=== PATIENT | male | born 1970 | race Caucasian/White ===

== ENCOUNTER 2021-10-25 18:20 | Inpatient (IN) | payer MEDICARE, SELFPAY ==
--- NOTE | ~2021-10-25 | CT_ITS ---
EXAMINATION: CT abdomen pelvis wo con DATE: 10/25/2021 19:54 INDICATION: DIFFUSE ABDOMINAL PAIN, HEMATURIA TECHNIQUE: Computed tomography (CT) of the abdomen and pelvis was performed without intravenous contr ast. Automated exposure control and iterative reconstruction technique were employed. The dose-length product was 1551.50 mGy-cm. COMPARISON: None. FINDINGS: Lower thorax: Small hiatal hernia Liver: Normal. Biliary/Gallbladder: Unremarkable No bile duct dilation. Pancreas: No mass or duct dilation. Spleen: Normal. Adrenals:No mass. Kidneys: Moderate bilateral hydronephrosis. Nonobstructive right midpole calculus. Bilateral renal ec topy. GI tract: Diffusely mildly dilated mostly air-filled large bowel. Nonvisualized. Short segment eccent mariola wall thickening in the sigmoid. The rectum is dilated up to 8.3 cm by formed stool, with mild wal l thickening but no surrounding inflammatory change. Mesentery/Peritoneum: No ascites, mass, or free air. Shunt tubing terminates in the left upper quadra nt. Retroperitoneum: No mass. Pelvis: Markedly dilated bladder. Curvilinear hyperdensity in the dependent urinary bladder portions of which is somewhat circumferential appearance. The Saez catheter balloon is located in the membran ous urethra. Soft Tissues: Soft tissues and body wall unremarkable. Bones: No acute osseous finding. IMPRESSION: Saez catheter balloon located in the membranous urethra, recommend removal and replacement. Marked b ladder dilation and moderate bilateral hydronephrosis. Hyperdense urinary bladder debris may represen t hemorrhage and possibly a urinary bladder stone. Fecal impaction with mild large bowel obstruction. Eccentric sigmoid wall thickening, recommend outpatient referral for colonoscopy if not recently per formed. Results reported telephonically to Dr. Juarez by Dr. Rodriguez at 8:17 PM on 10/25/2021. Reviewed, dictated and finalized at location K. IMPRESSION: Saez catheter balloon located in the membranous urethra, recommend removal and replacement. Marked bladder dilation and moderate bilateral hydronephrosis. Hy perdense urinary bladder debris may represent hemorrhage and possibly a urinary bladder stone. Fecal impaction with mild large bowel obstruction. Eccentric si gmoid wall thickening, recommend outpatient referral for colonoscopy if not rec ently performed. Results reported telephonically to Dr. Juarez by Dr. Rodriguez at 8:17 PM on 10/25.
--- NOTE | ~2021-10-25 | XR_ITS ---
EXAMINATION: XR chest 1V portable Exam Date/Time: 10/25/2021 19:20 CDT HISTORY: FEVER Comparison: None available. RESULT: Lines, tubes, and devices: Incompletely visualized cervical fusion hardware. Lungs and pleura: Clear. Cardiomediastinal silhouette: Unremarkable. Other: No acute osseous or upper abdominal finding. IMPRESSION: No acute cardiopulmonary process. Reviewed, dictated and finalized at location K.
--- NOTE | ~2021-10-25 | US_ITS ---
EXAMINATION: US renal BI DATE: 10/26/2021 14:21 INDICATION: Bilateral hydronephrosis. TECHNIQUE: Multiple ultrasound grayscale images of the kidneys were obtained. COMPARISON: CT abdomen and pelvis 10/25/2021 FINDINGS: The right kidney measures 12.8 x 5.8 x 5.0 cm. The left kidney measures 12.4 x 6.6 x 4.9 cm. The kidn eys demonstrate normal parenchymal echogenicity. There is no hydronephrosis. The bladder is decompres sed by a Saez catheter. IMPRESSION: 1. Normal kidneys. No hydronephrosis. Reviewed, dictated and finalized at location A.
[2021-10-25 18:18] VITALS: BP 142/75; PULSE 129; RESP 26; TEMP 37.4; O2SAT 97
--- NOTE | 2021-10-25 18:52 | ED.MALEGU ---
HPI - Male Genitourinary General Chief complaint: Urogenital-Male Stated complaint: Blood in catheter Time Seen by Provider: 10/25/21 18:32 History of Present Illness HPI Narrative: Pt is a 51 y/o male PMHx of spinal stenosis with prior cervical fusion, S/P fall over a month ago with BUE weakness following, subsequently placed in a SNF following, long hx of neurogenic bladder prior to the fall, self catheterized for years, now presenting from a local rehab facility with indwelling Saez catheter; sent today to the ED for hematuria. [facility] staff reported his catheter was no longer draining and the catheter was subsequently replaced. A scant amount of dark urine drained and gross blood followed. He has not had fevers until arrival to the ED today but reports diffuse abdominal aching and some nausea. He denies associated cough, nasal congestion, URI symptoms, abdominal pain, VDC or COV concerns. Related Data Allergies Allergy/AdvReac Type Severity Reaction Status Date / Time No Known Allergies Allergy Verified 09/02/21 17:54 Review of Systems Review of Systems: refer to HPI Constitutional: Comments: refer to HPI Genitourinary: Comments: refer to HPI FORMERLY [facility], [facility] Past Medical History Medical History (Updated 10/26/21 @ 00:11 by SHAQ Bernard) Acute on chronic urinary retention Cervical spinal stenosis Congenital hydrocephalus Constipation Diabetes mellitus Sinus tachycardia Surgical History Surgical History (Updated 09/03/21 @ 10:56 by Hardy Huber MD) S/P spinal fusion Family History Family History Mother Heart disease Hypertension Diabetes mellitus Father Heart disease Social History Social History Smoking status: Never smoker Exam Const: General: cooperative, no acute distress, alert and awake Other: Pt arrives in a C collar prior to arrival. He has voluntary movement of his upper and lower extremities bilaterally but generally weak/symmetrical 3/5 throughout. HENMT: Head: normal to inspection Ears: hearing grossly normal bilaterally Face and sinus: normal facial exam, sinuses nontender and face symmetric Eyes: General: appearance normal, both eyes and all related structures Visual Purcell: normal visual purcell by confrontation Eyelids: eyelids normal Conjunctivae: conjunctivae normal Sclera: sclerae normal Neck: Neck: normal visual inspection Other: C collar in place Chest: Chest palpation & inspection: normal inspection of the chest Resp: Effort & Inspection: normal respiratory effort Auscultation: clear to auscultation bilaterally Percussion: percussion normal Cardio: Rate: tachycardic Rhythm: regular rhythm Heart sounds: S1 normal heart sound present and S2 normal heart sound present Peripheral pulses: Peripheral pulses 2+ throughout GI: Percussion: Yes normal to percussion Auscultation: normal bowel sounds Other: central obesity noted No focal TTP, no rebound tenderness : Male General Exam: Yes other (Pt has erosive tissue at the base of the urethral meatus) Scrotum: scrotum normal Other: There is some erythema to the meatus with bloody drainage noted. No hemorrhage noted. There is no TTP. Pt is not circumcised Urinary Catheter: Urinary Catheter: urine with clots (scant urine out) Back/Spine/Pelvis: Other: bladder scan is complete. pt has large volume of urine retained in the bladder. catheter replacement does not irrigate or provide any further drainage from the bladder. Skin: Rashes: no rashes Other: skin is hot to touch, febrile upon arrival Neuro: Cranial nerves: Yes CN's II-XII intact bilaterally Other: decreased sensation but present, reported to BLE-chronic per patient. Pt has stage 2 pressure ulcerations of the sacrum/buttock bilaterally. NO tunneling or drainage noted Psych: Appearance: grossly normal Mental Status: mental status grossly normal Course Course Emergency Cou
[2021-10-25 18:59] LABS: Add Urine Microscopic? YES; Appearance Urine Turbid (Clear); Bilirubin Urine 1+ (Negative); Blood Urine 2+ (Negative); Color Urine Red (Yellow); Glucose Urine UA Trace mg/dL (Negative); Ketones Urine Trace mg/dL (Negative); Leukocyte Esterase Ur Negative LEU/UL (Negative); Nitrate Urine Negative (Negative); Protein Urine 3+ mg/dL (Negative); Specific Grav Ur 1.025 (1.001-1.035); Urobilinogen Urine 0.2 mg/dL (<2.0)
[2021-10-25 19:02] LABS: Basophils Percent Auto 1.4 % (0.2-1.2); Hematocrit 42.3 % (42.0-52.0); Hemoglobin 12.5 g/dL (14.0-18.0); Immature Granulocyte Absolute 0.01 K/mm3 (0.00-0.031); Immature Granulocyte Percent A 0.3 % (0-0.5); Lymphocytes Absolute Auto 0.34 K/mm3 (0.9-3.2); Lymphocytes Percent Auto 11.7 % (18.3-44.2); Mean Corpuscular HGB Conc 29.6 g/dl (32-36); Mean Corpuscular Hemoglobin 25.6 pg (26-34); Mean Corpuscular Volume 86.7 fl (80-100); Mean Platelet Volume 9.9 fl (7.4-10.4); Monocytes Percent Auto 0.7 % (2.6-8.5); Neutrophils Absolute Auto 2.5 K/mm3 (1.3-6.7); Neutrophils Percent Auto 84.9 % (45.5-73.1); Platelet Count Result 174 k/mm3 (150-375); Red Blood Count 4.88 M/mm3 (4.6-6.20); Red Cell Distribution Width 14.6 % (11.5-14.5); White Blood Count 2.9 K/mm3 (4.5-10.0)
[2021-10-25 19:11] LABS: RBC Urine >75 /hpf (0-2)
[2021-10-25 19:12] LABS: Bacteria Urine None seen /hpf; WBC Urine 0-3 /hpf (0-3)
--- NOTE | 2021-10-25 19:24 | PC.NURSE ---
Assumed care with chloe BATES. Pt resting at approx 30 degree angle upright in stretcher with c-collar applied. Pt urinary bag draining with blood-tinged urine at this time.
[2021-10-25 19:28] LABS: Hypochromasia 1+ (NORMAL); Ovalocytes 1+ (NORMAL); Platelet Estimate Adequate (Adequate)
[2021-10-25] MEDS: ACETAMINOPHEN 325 MG TABLET 650 MG PO (19:30)
[2021-10-25 19:49] LABS: SARS-CoV-2 RNA PCR Negative
[2021-10-25 20:02] LABS: Alanine Aminotransferase 31 U/L (6-50); Albumin Level 4.4 g/dL (3.5-5.1); Alkaline Phosphatase 161 U/L (38-126); Anion Gap 17 mmol/L (8-16); Aspartate Amino Transferase 25 U/L (17-59); Bilirubin,Total 1.2 mg/dL (0.2-1.3); Blood Urea Nitrogen 25 mg/dL (9-20); Calcium 9.5 mg/dL (8.4-10.2); Carbon Dioxide 24 mmol/L (22-30); Chloride 99 mmol/L (98-107); Estimated CRCL calculation 114 ml/min; Estimated Glomerular Filt Rate > 60; Glucose 125 mg/dL (65-110); Lipase 108 U/L (23-300); Sodium 140 mmol/L (137-145)
[2021-10-25 20:03] LABS: Lactic Acid Reflex 2.7 mmol/L (0.7-2.0)
[2021-10-25 20:09] VITALS: BP 136/83; PULSE 140; RESP 27; TEMP 39.6; O2SAT 96
[2021-10-25 20:16] VITALS: TEMP 39.4
[2021-10-25] MEDS: KETOROLAC 30 MG/ML VIAL (*BKC) IV PUSH (20:16)
[2021-10-25] MEDS: SODIUM CHLORIDE 0.9% IV 1,000 ML 30 ML IV CONT (20:17)
[2021-10-25 21:26] VITALS: BP 126/76; PULSE 138; RESP 26; TEMP 37.7; O2SAT 96
[2021-10-25 22:46] LABS: Reflex Lactic Acid Yes or No Add Lactic
[2021-10-25 23:35] LABS: Lactic Acid Reflex 1.5 mmol/L (0.7-2.0)
[2021-10-25 23:51] LABS: CRP 21.6 mg/dL (<1.0)
[2021-10-25 23:59] VITALS: BP 102/62; PULSE 116; RESP 36; TEMP 37.1; O2SAT 95
[2021-10-26] VITALS (18 sets, daily range): BP systolic 91–128; BP diastolic 54–74; PULSE 90–114; RESP 16–28; TEMP 36.1–37.2; O2SAT 95–100; BMI 35.0
[2021-10-26] MEDS: SODIUM CHLORIDE 0.9% IV 500 ML 999 ML IV CONT (00:03)
[2021-10-26] MEDS: cefTRIAXone 2 GM in SODIUM CHLORIDE 0.9% IV 100 ML 200 ML IVPB ×2 (00:32→23:42)
--- NOTE | 2021-10-26 02:03 | ADMGEN ---
This patient, Mark Kenny, was admitted to Medical Room 250-01. Patient/family oriented to hospital policies and general routines including ID bracelet, bed and alarms, visiting hours, pain management, procedures, bathroom and other care routines, personal items, smoking policy, room service/diet, and visiting hours. Information on how to activate the Rapid Response Team has been discussed. Patient/Family are encouraged to report perceived risks to care and to ask questions if they do not understand what they are told or what they should do.
--- NOTE | 2021-10-26 02:59 | PC.NURSE ---
Spoke with ED Vilma who stated that all the bolus had been given as ordered.
--- NOTE | 2021-10-26 05:18 | PM.IMHP ---
H&P: HPI History of Present Illness Date/Time: 10/26/21 04:40 Chief Complaint: Blood in urine Narrative: Unfortunate 51-year-old male with past medical history of neurologic dysfunction due to combination of cauda equina from injury many years ago combined with cervical spine injury after tripping over his granddaughter in late August. The patient underwent cervical decompression and stabilization as discussed under past medical history. Patient was in acute inpatient rehab from 09/03/2021-09/23/2021. He was not meeting his goals for therapy and was discharged to the halfway facility. While in acute rehab the patient had a positive urine culture on 09/11/2021. It initially he was not treated for UTI but 4 days after the positive urine culture he began having symptoms. He was treated for 7 days with cefdinir. The patient has had a Saez catheter since he was transitioned to halfway facility. The patient could not remember exactly why he was brought into the ER. He did not think he was having any confusion but at this point he admits that he probably does not remember much from around the time he came to the ER. [facility] reported that the patient was having blood in his urine. He had also had decreased urine output from his catheter. They had tried to changes catheter at the halfway minute evidently ended up within the prostatic urethra. ER staff adjusted the catheter and still the catheter was not draining. Subsequently a 3 way catheter was placed for anticipated CBI but with placement of the larger catheter the patient's bladder began draining urine with clots. The patient reports the abdominal pain initially on arrival to the ER. He denies any abdominal pain currently. On arrival to the ER he was overtly febrile with a temperature of 103.2?. He denies any cough, congestion, shortness of breath. He reports that his mouth feels dry. He denies any headache or vision changes. He has chronic cauda equina syndrome but is usually able to get up and walk around. He has been participating with physical therapy and ambulating with a walker at the halfway. He denies any loss of sensation in his arms and currently has 5/5 senior investigator strength. He has no reproducible pain to palpation of his abdomen currently. He was manually disimpacted in the ER and received an enema. The patient initially told me that he was not on a bowel regimen at the halfway but according to the med rec entered by nursing staff the patient is on multiple medications. The patient reports he does not usually have trouble holding his stool as long as his stools are not too soft. Review of Systems Review of Systems: 12 systems were reviewed with pertinent positives and negatives per HPI. Except as documented in the HPI, all other systems were reviewed and are negative. [facility] Past Medical History Medical History (Updated 10/26/21 @ 06:48 by Renetta Leggett DO) Cauda equina compression (~1997) Cervical spinal stenosis Chronic indwelling Saez catheter Congenital hydrocephalus Constipation COVID (~10/2021) Diabetes mellitus DVT (deep venous thrombosis) (~1983) Eczema Essential hypertension Neurogenic bladder Sinus tachycardia Surgical History Surgical History (Updated 10/26/21 @ 06:36 by Renetta Leggett DO) History of appendectomy History of fusion of cervical spine Anterior C3-C4 in 1993, 08/24/2021 spinal cord injury MRI demonstrating moderate to severe degenerative changes at C4-C5 with severe spinal canal stenosis and mass effect on spinal cord he underwent a C2 through T1 2 posterior spinal fusion with a C2 through C7 decompression by Dr. Nieves 08/26/2021 Status post lumbar spine surgery for decompression of spinal cord (~1998) RAC SPECIALIST (ventriculoperitoneal) shunt status With last revision in 1999 Family History Family History (Updated 10/26/21 @ 06:49 by Renetta Leggett DO) Mother , Age 71 Heart disease Hy
[2021-10-26] MEDS: SODIUM CHLORIDE 0.9% IV 1,000 ML 125 ML IV CONT ×2 (06:54→16:22)
[2021-10-26 07:03] LABS: Hematocrit 31.6 % (42.0-52.0); Hemoglobin 9.9 g/dL (14.0-18.0); Mean Corpuscular HGB Conc 31.3 g/dl (32-36); Mean Corpuscular Hemoglobin 25.5 pg (26-34); Mean Corpuscular Volume 81.4 fl (80-100); Mean Platelet Volume 9.6 fl (7.4-10.4); Platelet Count Result 148 k/mm3 (150-375); Red Blood Count 3.88 M/mm3 (4.6-6.20); Red Cell Distribution Width 14.8 % (11.5-14.5); White Blood Count 11.3 K/mm3 (4.5-10.0)
[2021-10-26 07:40] LABS: Anion Gap 12 mmol/L (8-16); Blood Urea Nitrogen 25 mg/dL (9-20); Calcium 7.5 mg/dL (8.4-10.2); Carbon Dioxide 21 mmol/L (22-30); Chloride 104 mmol/L (98-107); Estimated CRCL calculation 113 ml/min; Estimated Glomerular Filt Rate > 60; Glucose 151 mg/dL (65-110); Potassium 3.7 mmol/L (3.4-5.0); Sodium 137 mmol/L (137-145)
[2021-10-26] MEDS: MELOXICAM 7.5 MG TABLET PO ×2 (09:00→16:24)
[2021-10-26] MEDS: DOCUSATE SODIUM 100 MG CAPSULE 200 MG PO ×2 (09:01→16:23)
[2021-10-26] MEDS: GABAPENTIN 300 MG CAPSULE 600 MG PO ×3 (09:01→16:24)
[2021-10-26] MEDS: METOPROLOL TARTRATE 12.5 MG TABLET PO ×2 (09:02→20:41)
[2021-10-26] MEDS: polyethylene glycoL 3350 17 GM POWD.PACK PO (09:03)
--- NOTE | 2021-10-26 12:08 | PM.IMPN ---
Progress Note: A&P Assessment and Plan (1) Sepsis without septic shock: Code(s): A41.9 - Sepsis, unspecified organism Status: Acute Assessment and Plan: Now improved. (2) UTI (urinary tract infection): Qualifiers: Urinary tract infection type: catheter-associated UTI Indwelling urinary catheter type: indwelling urethral catheter Encounter type: initial encounter Qualified Code(s): T83.511A - Infection and inflammatory reaction due to indwelling urethral catheter, initial encounter; N39.0 - Urinary tract infection, site not specified Code(s): N39.0 - Urinary tract infection, site not specified Status: Acute Assessment and Plan: Continue IV antibiotics. (3) Fecal impaction in rectum: Code(s): K56.41 - Fecal impaction Status: Acute Assessment and Plan: Status post disimpaction in ER. (4) Chronic indwelling Saez catheter: Code(s): Z97.8 - Presence of other specified devices Status: Acute Subjective Date/time seen: 10/26/21 12:08 Denies any complaints Exam Narrative: Weight 117.3 kg BMI 35.1 Const: Other: Obese, no acute distress, laying flat in bed HENMT: Other: Head is normocephalic atraumatic, mucous membranes are dry, limited evaluation oropharynx as patient cannot open his mouth much due to presence of cervical collar, fair dentition Eyes: Other: pupils are equal and reactive, mild conjunctival erythema left eye, eye is watering Neck: Other: Cervical collar in place Resp: Other: Clear to auscultation bilaterally, no increased work of breathing Cardio: Other: Regular rate, regular rhythm, 2+ bilateral radial pedal pulses GI: Other: Distended, nontender, hypoactive bowel sounds, soft : Other: Saez catheter in place with distortion of the urethral meatus due to history of repeated catheterization, 150-200 mL of dark turbid carmen urine present Back/Spine/Pelvis: Other: Cervical collar in place Skin: Other: Extensive tattoos extending up bilateral arms including posterior of the fingers up on to the chest, otherwise generalized pallor Neuro: Other: Alert and oriented, speech is clear, no facial asymmetry, decreased reflexes patellar bilaterally, intact sensation of upper extremities, upper extremity movement is grossly normal, 3/5 strength plantar flexion bilateral lower extremities Extrem: Other: 1+ pitting edema of lower extremities, Psych: Other: Flat affect, cooperative Objective Data Vital Signs Vital Signs: Vital Signs - 24 hr 10/25/21 18:18 10/25/21 20:09 10/25/21 20:16 Temperature 99.3 F 103.2 F H 103 F H Pulse Rate 129 H 140 H Respiratory Rate 26 H 27 H Blood Pressure 142/75 H 136/83 Pulse Oximetry 97 96 Oxygen Delivery Room Air 10/25/21 21:26 10/25/21 21:26 10/25/21 23:59 Temperature 99.9 F H 99.9 F H 98.8 F Pulse Rate 138 H 116 H Respiratory Rate 26 H 36 H Blood Pressure 126/76 102/62 Pulse Oximetry 96 95 Oxygen Delivery 10/26/21 00:36 10/26/21 01:25 10/26/21 01:36 Temperature Pulse Rate 114 H 103 H 104 H Respiratory Rate 24 H 28 H 16 Blood Pressure 91/58 L 104/61 104/61 Pulse Oximetry 96 96 95 Oxygen Delivery 10/26/21 02:03 10/26/21 02:02 10/26/21 03:21 Temperature 98.8 F 98.5 F Pulse Rate 98 97 Respiratory Rate 20 20 Blood Pressure 106/54 L 125/69 Pulse Oximetry 98 99 Oxygen Delivery Room Air 10/26/21 02:12 10/26/21 04:00 10/26/21 09:02 Temperature Pulse Rate 98 95 94 Respiratory Rate Blood Pressure Pulse Oximetry Oxygen Delivery 10/26/21 10:00 10/26/21 08:00 10/26/21 08:00 Temperature 97.5 F L Pulse Rate 97 94 Respiratory Rate 16 Blood Pressure 127/74 Pulse Oximetry 100 Oxygen Delivery Room Air Intake/Output Intake/Output: Intake & Output 10/23/21 10/24/21 10/25/21 10/26/21 23:59 23:59 23:59 23:59 Intake Total 19990 Output Total 0 550 Balance 1999 2049 M
--- NOTE | 2021-10-26 13:11 | WPDURCON ---
Assessment and Plan Assessment and plan (1) UTI (urinary tract infection): Qualifiers: Urinary tract infection type: catheter-associated UTI Indwelling urinary catheter type: indwelling urethral catheter Encounter type: initial encounter Qualified Code(s): T83.511A - Infection and inflammatory reaction due to indwelling urethral catheter, initial encounter; N39.0 - Urinary tract infection, site not specified Code(s): N39.0 - Urinary tract infection, site not specified Status: Acute Assessment and Plan: Continue Ceftriaxone, tailor antibiotics to culture results. (2) Chronic indwelling Edwards catheter: Code(s): Z97.8 - Presence of other specified devices Status: Acute Assessment and Plan: Continue monthly catheter changes until he is able to self catheterize again. We discussed f/u in the office for a cysto to evaluate his bladder d/t a long history of self catheterization and a having a more elevated risk of bladder cancer. (3) Hematuria: Code(s): R31.9 - Hematuria, unspecified Status: Acute Assessment and Plan: Secondary to urethral trauma and UTI. Restart CBI, wean CBI to off when urine is clear, restart if blood begins again. Ok to switch catheter to a normal 16fr catheter when hematuria ceases off CBI. (4) Hydronephrosis: Code(s): N13.30 - Unspecified hydronephrosis Status: Acute Assessment and Plan: Obtain a ARVIND today to ensure bladder distention and bilateral hydro has resolved secondary to catheter replacement and maximal bladder drainage is accomplished without obstruction from clots or a dislodged catheter. Urology Consult Note HPI Date Seen: 10/26/21 Time Seen: 13:00 Requesting Physician: Renetta Leggett DO Primary Care Provider: Abel GrossmanMD Consult Narrative Reason for consult: Gross Hematuria/UTI Narrative: Mark Kenny is a 51 year old male who presented to the ER yesterday for a clogged catheter, fever and abdominal pain. He has a PMHx of spinal stenosis with prior cervical fusion, S/P fall over a month ago with BUE weakness following, subsequently placed in a SNF following, long hx of neurogenic bladder prior to the fall, self catheterized for years, now presenting from a local rehab facility with indwelling Edwards catheter. He states he cannot walk to the bathroom without assistance yet, therefore he has stopped self catheterizing temporarily until he can walk himself to the bathroom again. He had his edwards placed initially in 08/2021, and his has been changed several times since. His CT scan upon arrival at the ER shows a edwards balloon in the urethra, bladder dilation and bilateral hydronephrosis. His catheter was then replaced in the ER with a 3 way edwards and notable bloody drainage was observed. His WBc is elevated today at 11.3, creatinine is normal at 0.90, UA is suggestive of a UTI and urine cultures as well as blood cultures are pending at this time. He is afebrile today, but had a fever of 102.3 upon arrival at the ER. He has been started on Ceftriaxone at this time. He states he has never seen a urologist since starting to self catheterize over 20 years ago. Review of Systems Constitutional: Constitutional: Denies chills, Reports lethargy and Denies night sweats Cardiovascular: Cardiovascular: Denies chest pain Respiratory: Respiratory: Reports no additional respiratory complaints Gastrointestinal: Gastrointestinal: Denies abdominal pain, Denies nausea and Denies vomiting Genitourinary: Genitourinary: Reports hematuria and Denies flank pain Neurologic: Reports abnormal gait PMFSH Past Medical History Medical History Cauda equina compression (~1997) Cervical spinal stenosis Chronic indwelling Edwards catheter Congenital hydrocephalus Constipation COVID (~10/2021) Diabetes mellitus DVT (deep venous thrombosis) (~1983) Eczema Essential hypertension
--- NOTE | 2021-10-26 14:06 | PCNSR ---
On 10/26/21, the student,Julianne Hernandez, provided care and completed [facility] documentation on this patient. I have reviewed the student's documentation and agree with the findings.
[2021-10-26] MEDS: CYCLOBENZAPRINE HCL 10 MG TABLET PO ×2 (14:36→20:41)
[2021-10-26] MEDS: SENNOSIDES 8.6 MG TABLET 17.2 MG PO (16:24)
[2021-10-26] MEDS: ACETAMINOPHEN 325 MG TABLET 650 MG PO (16:25)
[2021-10-26] MEDS: SALINE 0.65% NAS SOLN 44 ML BTL 1 SPRAY NASAL (18:22)
[2021-10-26] MEDS: CLOBETASOL PROPIONATE 0.05% CREAM 30 GM 1 APPLIC TOPICAL (20:41)
[2021-10-27] VITALS (13 sets, daily range): BP systolic 141–154; BP diastolic 73–86; PULSE 79–95; RESP 14–20; TEMP 36.2–37; O2SAT 96–99; BMI 10.0
[2021-10-27] MEDS: CYCLOBENZAPRINE HCL 10 MG TABLET PO ×3 (08:12→21:01)
[2021-10-27] MEDS: DOCUSATE SODIUM 100 MG CAPSULE 200 MG PO ×2 (08:13→16:38)
[2021-10-27] MEDS: MELOXICAM 7.5 MG TABLET PO ×2 (08:13→16:39)
[2021-10-27] MEDS: GABAPENTIN 300 MG CAPSULE 600 MG PO ×3 (08:14→16:39)
[2021-10-27] MEDS: METOPROLOL TARTRATE 12.5 MG TABLET PO ×2 (08:14→21:00)
[2021-10-27] MEDS: SENNOSIDES 8.6 MG TABLET 17.2 MG PO ×2 (08:16→16:40)
[2021-10-27] MEDS: polyethylene glycoL 3350 17 GM POWD.PACK PO (08:16)
[2021-10-27] MEDS: SODIUM CHLORIDE 0.9% IV 1,000 ML 125 ML IV CONT ×2 (10:00→17:50)
--- NOTE | 2021-10-27 10:29 | PM.IMPN ---
Progress Note: A&P Assessment and Plan (1) Sepsis without septic shock: Code(s): A41.9 - Sepsis, unspecified organism Status: Acute Assessment and Plan: Now improved. (2) UTI (urinary tract infection): Qualifiers: Urinary tract infection type: catheter-associated UTI Indwelling urinary catheter type: indwelling urethral catheter Encounter type: initial encounter Qualified Code(s): T83.511A - Infection and inflammatory reaction due to indwelling urethral catheter, initial encounter; N39.0 - Urinary tract infection, site not specified Code(s): N39.0 - Urinary tract infection, site not specified Status: Acute Assessment and Plan: Continue IV antibiotics. (3) Fecal impaction in rectum: Code(s): K56.41 - Fecal impaction Status: Acute Assessment and Plan: Status post disimpaction in ER. (4) Chronic indwelling Saez catheter: Code(s): Z97.8 - Presence of other specified devices Status: Acute Subjective Date/time seen: 10/27/21 10:29 No complaints Exam Narrative: Weight 117.3 kg BMI 35.1 Const: Other: Obese, no acute distress, laying flat in bed HENMT: Other: Head is normocephalic atraumatic, mucous membranes are dry, limited evaluation oropharynx as patient cannot open his mouth much due to presence of cervical collar, fair dentition Eyes: Other: pupils are equal and reactive, mild conjunctival erythema left eye, eye is watering Neck: Other: Cervical collar in place Resp: Other: Clear to auscultation bilaterally, no increased work of breathing Cardio: Other: Regular rate, regular rhythm, 2+ bilateral radial pedal pulses GI: Other: Distended, nontender, hypoactive bowel sounds, soft : Other: Saez catheter in place with distortion of the urethral meatus due to history of repeated catheterization, 150-200 mL of dark turbid carmen urine present Back/Spine/Pelvis: Other: Cervical collar in place Skin: Other: Extensive tattoos extending up bilateral arms including posterior of the fingers up on to the chest, otherwise generalized pallor Neuro: Other: Alert and oriented, speech is clear, no facial asymmetry, decreased reflexes patellar bilaterally, intact sensation of upper extremities, upper extremity movement is grossly normal, 3/5 strength plantar flexion bilateral lower extremities Extrem: Other: 1+ pitting edema of lower extremities, Psych: Other: Flat affect, cooperative Objective Data Vital Signs Vital Signs: Vital Signs - 24 hr 10/26/21 14:00 10/26/21 12:00 10/26/21 16:20 Temperature 99.0 F 97 F L Pulse Rate 104 H 97 110 H Respiratory Rate 16 16 Blood Pressure 128/65 126/64 Pulse Oximetry 98 96 Oxygen Delivery 10/26/21 16:00 10/26/21 19:24 10/26/21 20:41 Temperature 99 F Pulse Rate 113 H 103 H 103 H Respiratory Rate 18 Blood Pressure 115/60 Pulse Oximetry 96 Oxygen Delivery 10/26/21 20:00 10/26/21 20:00 10/26/21 23:07 Temperature 98.7 F Pulse Rate 103 H 103 H 90 Respiratory Rate 18 18 Blood Pressure 101/61 Pulse Oximetry 96 96 Oxygen Delivery Room Air 10/27/21 03:38 10/27/21 04:00 10/27/21 08:14 Temperature 97.2 F L Pulse Rate 95 90 90 Respiratory Rate 20 Blood Pressure 141/73 H Pulse Oximetry 99 Oxygen Delivery 10/27/21 09:56 10/27/21 09:50 Temperature 98.6 F Pulse Rate 91 Respiratory Rate 16 Blood Pressure 147/84 H Pulse Oximetry 96 99 Oxygen Delivery Room Air Intake/Output Intake/Output: Intake & Output 10/24/21 10/25/21 10/26/21 10/27/21 23:59 23:59 23:59 23:59 Intake Total 1999 4090 1300 Output Total 0 765 1400 Balance 1999 3325 -100 Meds/Results Medications: Active Medications Generic Name Dose Route Start Last Admin Trade Name Ulises PRN Reason Stop Dose Admin Acetaminophen 650 mg 10/26/21 06:23 10/26/21 16:25 Acetaminophen 325 Mg Tablet PO 650 mg Q4H PRN Administration
[2021-10-27] MEDS: CLOBETASOL PROPIONATE 0.05% CREAM 30 GM 1 APPLIC TOPICAL (21:00)
[2021-10-27] MEDS: cefTRIAXone 2 GM in SODIUM CHLORIDE 0.9% IV 100 ML 200 ML IVPB (21:01)
[2021-10-28] VITALS (15 sets, daily range): BP systolic 126–166; BP diastolic 80–109; PULSE 60–102; RESP 14–20; TEMP 35.9–36.8; O2SAT 96–99
[2021-10-28] MEDS: SODIUM CHLORIDE 0.9% IV 1,000 ML 125 ML IV CONT ×3 (03:05→19:20)
[2021-10-28 04:57] LABS: Hematocrit 31.2 % (42.0-52.0); Hemoglobin 9.9 g/dL (14.0-18.0); Mean Corpuscular HGB Conc 31.7 g/dl (32-36); Mean Corpuscular Hemoglobin 25.6 pg (26-34); Mean Corpuscular Volume 80.8 fl (80-100); Mean Platelet Volume 10.7 fl (7.4-10.4); Platelet Count Result 171 k/mm3 (150-375); Red Blood Count 3.86 M/mm3 (4.6-6.20); Red Cell Distribution Width 14.8 % (11.5-14.5); White Blood Count 4.6 K/mm3 (4.5-10.0)
[2021-10-28 05:30] LABS: Anion Gap 8 mmol/L (8-16); Blood Urea Nitrogen 7 mg/dL (9-20); Calcium 7.9 mg/dL (8.4-10.2); Carbon Dioxide 22 mmol/L (22-30); Chloride 104 mmol/L (98-107); Estimated CRCL calculation 164 ml/min; Estimated Glomerular Filt Rate > 60; Glucose 100 mg/dL (65-110); Potassium 3.3 mmol/L (3.4-5.0); Sodium 134 mmol/L (137-145)
[2021-10-28] MEDS: CYCLOBENZAPRINE HCL 10 MG TABLET PO ×3 (05:49→21:01)
[2021-10-28] MEDS: POTASSIUM CHLORIDE 20 MEQ TABLET PO (08:20)
[2021-10-28] MEDS: GABAPENTIN 300 MG CAPSULE 600 MG PO ×3 (08:20→17:53)
[2021-10-28] MEDS: MELOXICAM 7.5 MG TABLET PO ×2 (08:20→17:53)
[2021-10-28] MEDS: ENOXAPARIN 40 MG/0.4 ML SYRINGE SUB-Q (08:20)
[2021-10-28] MEDS: METOPROLOL TARTRATE 12.5 MG TABLET PO ×2 (08:21→21:01)
[2021-10-28] MEDS: polyethylene glycoL 3350 17 GM POWD.PACK PO (08:21)
[2021-10-28] MEDS: CLOBETASOL PROPIONATE 0.05% CREAM 30 GM 1 APPLIC TOPICAL ×2 (08:22→21:03)
--- NOTE | 2021-10-28 10:14 | PM.IMPN ---
Progress Note: A&P Assessment and Plan (1) Sepsis without septic shock: Code(s): A41.9 - Sepsis, unspecified organism Status: Acute Assessment and Plan: Now improved. (2) UTI (urinary tract infection): Qualifiers: Urinary tract infection type: catheter-associated UTI Indwelling urinary catheter type: indwelling urethral catheter Encounter type: initial encounter Qualified Code(s): T83.511A - Infection and inflammatory reaction due to indwelling urethral catheter, initial encounter; N39.0 - Urinary tract infection, site not specified Code(s): N39.0 - Urinary tract infection, site not specified Status: Acute Assessment and Plan: Continue IV antibiotics. (3) Fecal impaction in rectum: Code(s): K56.41 - Fecal impaction Status: Acute Assessment and Plan: Status post disimpaction in ER. (4) Chronic indwelling Saez catheter: Code(s): Z97.8 - Presence of other specified devices Status: Acute Subjective Date/time seen: 10/28/21 10:14 No complaints Exam Narrative: Weight 117.3 kg BMI 35.1 Const: Other: Obese, no acute distress, laying flat in bed HENMT: Other: Head is normocephalic atraumatic, mucous membranes are dry, limited evaluation oropharynx as patient cannot open his mouth much due to presence of cervical collar, fair dentition Eyes: Other: pupils are equal and reactive, mild conjunctival erythema left eye, eye is watering Neck: Other: Cervical collar in place Resp: Other: Clear to auscultation bilaterally, no increased work of breathing Cardio: Other: Regular rate, regular rhythm, 2+ bilateral radial pedal pulses GI: Other: Distended, nontender, hypoactive bowel sounds, soft : Other: Saez catheter in place with distortion of the urethral meatus due to history of repeated catheterization, 150-200 mL of dark turbid carmen urine present Back/Spine/Pelvis: Other: Cervical collar in place Skin: Other: Extensive tattoos extending up bilateral arms including posterior of the fingers up on to the chest, otherwise generalized pallor Neuro: Other: Alert and oriented, speech is clear, no facial asymmetry, decreased reflexes patellar bilaterally, intact sensation of upper extremities, upper extremity movement is grossly normal, 3/5 strength plantar flexion bilateral lower extremities Extrem: Other: 1+ pitting edema of lower extremities, Psych: Other: Flat affect, cooperative Objective Data Vital Signs Vital Signs: Vital Signs - 24 hr 10/27/21 12:00 10/27/21 13:55 10/27/21 14:23 Temperature 98.3 F Pulse Rate 82 90 Respiratory Rate 18 Blood Pressure 143/78 H Pulse Oximetry 98 Oxygen Delivery Room Air 10/27/21 16:00 10/27/21 18:10 10/27/21 21:00 Temperature 97.7 F Pulse Rate 79 90 83 Respiratory Rate 16 Blood Pressure 142/80 H Pulse Oximetry 98 Oxygen Delivery 10/27/21 22:44 10/27/21 20:00 10/27/21 20:00 Temperature 97.6 F Pulse Rate 85 87 Respiratory Rate 14 Blood Pressure 154/86 H Pulse Oximetry 98 Oxygen Delivery Room Air 10/28/21 00:00 10/28/21 01:52 10/28/21 04:00 Temperature 98.2 F Pulse Rate 86 74 78 Respiratory Rate 16 Blood Pressure 166/84 H Pulse Oximetry 97 Oxygen Delivery 10/28/21 06:49 10/28/21 08:21 10/28/21 08:15 Temperature 97.7 F Pulse Rate 88 88 Respiratory Rate 14 Blood Pressure 163/93 H Pulse Oximetry 99 Oxygen Delivery Room Air 10/28/21 08:00 Temperature Pulse Rate 69 Respiratory Rate Blood Pressure Pulse Oximetry Oxygen Delivery Intake/Output Intake/Output: Intake & Output 10/25/21 10/26/21 10/27/21 10/28/21 23:59 23:59 23:59 23:59 Intake Total 1999 4090 2990 1120 Output Total 0 765 4150 2650 Balance 1999 4200 -4600 -4710 Meds/Results Medications: Active Medications Generic Name Dose Route Start Last Admin Trade Name Freq PRN Reason Stop Dose Admin Ac
[2021-10-28] MEDS: SENNOSIDES 8.6 MG TABLET 17.2 MG PO (17:52)
[2021-10-28] MEDS: DOCUSATE SODIUM 100 MG CAPSULE 200 MG PO (17:53)
[2021-10-28] MEDS: cefTRIAXone 2 GM in SODIUM CHLORIDE 0.9% IV 100 ML 200 ML IVPB (21:03)
[2021-10-29] VITALS (9 sets, daily range): BP systolic 135–170; BP diastolic 86–93; PULSE 71–85; RESP 16–22; TEMP 36.2–36.8; O2SAT 97–98
[2021-10-29] MEDS: CYCLOBENZAPRINE HCL 10 MG TABLET PO ×3 (05:36→21:13)
[2021-10-29] MEDS: SODIUM CHLORIDE 0.9% IV 1,000 ML 125 ML IV CONT ×2 (05:36→15:33)
[2021-10-29] MEDS: METOPROLOL TARTRATE 12.5 MG TABLET PO ×2 (09:00→20:28)
[2021-10-29] MEDS: polyethylene glycoL 3350 17 GM POWD.PACK PO ×2 (09:00→17:47)
[2021-10-29] MEDS: ENOXAPARIN 40 MG/0.4 ML SYRINGE SUB-Q (09:00)
[2021-10-29] MEDS: GABAPENTIN 300 MG CAPSULE 600 MG PO ×3 (09:01→17:47)
[2021-10-29] MEDS: SENNOSIDES 8.6 MG TABLET 17.2 MG PO ×2 (09:01→17:47)
[2021-10-29] MEDS: MELOXICAM 7.5 MG TABLET PO ×2 (09:02→17:48)
[2021-10-29] MEDS: DOCUSATE SODIUM 100 MG CAPSULE 200 MG PO ×2 (09:02→17:47)
[2021-10-29] MEDS: CLOBETASOL PROPIONATE 0.05% CREAM 30 GM 1 APPLIC TOPICAL (09:03)
--- NOTE | 2021-10-29 12:08 | PM.IMPN ---
Progress Note: A&P Assessment and Plan (1) Sepsis without septic shock: Code(s): A41.9 - Sepsis, unspecified organism Status: Acute Assessment and Plan: Now improved. (2) UTI (urinary tract infection): Qualifiers: Urinary tract infection type: catheter-associated UTI Indwelling urinary catheter type: indwelling urethral catheter Encounter type: initial encounter Qualified Code(s): T83.511A - Infection and inflammatory reaction due to indwelling urethral catheter, initial encounter; N39.0 - Urinary tract infection, site not specified Code(s): N39.0 - Urinary tract infection, site not specified Status: Acute Assessment and Plan: Continue IV antibiotics. (3) Fecal impaction in rectum: Code(s): K56.41 - Fecal impaction Status: Acute Assessment and Plan: Status post disimpaction in ER. (4) Chronic indwelling Saez catheter: Code(s): Z97.8 - Presence of other specified devices Status: Acute Subjective Date/time seen: 10/29/21 12:08 No complaints Exam Narrative: Weight 117.3 kg BMI 35.1 Const: Other: Obese, no acute distress, laying flat in bed HENMT: Other: Head is normocephalic atraumatic, mucous membranes are dry, limited evaluation oropharynx as patient cannot open his mouth much due to presence of cervical collar, fair dentition Eyes: Other: pupils are equal and reactive, mild conjunctival erythema left eye, eye is watering Neck: Other: Cervical collar in place Resp: Other: Clear to auscultation bilaterally, no increased work of breathing Cardio: Other: Regular rate, regular rhythm, 2+ bilateral radial pedal pulses GI: Other: Distended, nontender, hypoactive bowel sounds, soft : Other: Saez catheter in place with distortion of the urethral meatus due to history of repeated catheterization, 150-200 mL of dark turbid carmen urine present Back/Spine/Pelvis: Other: Cervical collar in place Skin: Other: Extensive tattoos extending up bilateral arms including posterior of the fingers up on to the chest, otherwise generalized pallor Neuro: Other: Alert and oriented, speech is clear, no facial asymmetry, decreased reflexes patellar bilaterally, intact sensation of upper extremities, upper extremity movement is grossly normal, 3/5 strength plantar flexion bilateral lower extremities Extrem: Other: 1+ pitting edema of lower extremities, Psych: Other: Flat affect, cooperative Objective Data Vital Signs Vital Signs: Vital Signs - 24 hr 10/28/21 14:24 10/28/21 14:43 10/28/21 16:00 Temperature 97.3 F L Pulse Rate 71 67 Respiratory Rate 20 Blood Pressure 157/85 H Pulse Oximetry 97 96 Oxygen Delivery Room Air 10/28/21 19:30 10/28/21 21:01 10/28/21 20:00 Temperature 97.8 F Pulse Rate 74 82 78 Respiratory Rate 18 Blood Pressure 149/88 H Pulse Oximetry 99 Oxygen Delivery 10/28/21 20:00 10/28/21 23:32 10/29/21 00:00 Temperature 97.4 F L Pulse Rate 76 85 Respiratory Rate 17 Blood Pressure 145/80 H Pulse Oximetry 96 Oxygen Delivery Room Air 10/29/21 04:00 10/29/21 04:00 10/29/21 08:00 Temperature 98.2 F Pulse Rate 79 77 71 Respiratory Rate 16 Blood Pressure 170/86 H Pulse Oximetry 98 Oxygen Delivery 10/29/21 08:00 10/29/21 09:00 10/29/21 09:30 Temperature 97.1 F L Pulse Rate 75 75 Respiratory Rate 20 Blood Pressure 154/92 H Pulse Oximetry 98 Oxygen Delivery Room Air Intake/Output Intake/Output: Intake & Output 10/26/21 10/27/21 10/28/21 10/29/21 23:59 23:59 23:59 23:59 Intake Total 4090 2990 4230 1120 Output Total 765 4150 4200 850 Balance 3325 -1160 30 270 Meds/Results Medications: Active Medications Generic Name Dose Route Start Last Admin Trade Name Freq PRN Reason Stop Dose Admin Acetaminophen 650 mg 10/26/21 06:23 10/26/21 16:25 Acetaminophen 325 Mg Tablet PO 650 mg Q4H PRN Admin
[2021-10-29] MEDS: cefTRIAXone 1 GM VIAL 2 GM IM (21:10)
[2021-10-30] VITALS (7 sets, daily range): BP systolic 144–172; BP diastolic 82–97; PULSE 61–80; RESP 16–20; TEMP 36.1–36.6; O2SAT 97–99
[2021-10-30] MEDS: CYCLOBENZAPRINE HCL 10 MG TABLET PO ×3 (05:10→21:08)
[2021-10-30] MEDS: MELOXICAM 7.5 MG TABLET PO ×2 (08:33→17:02)
[2021-10-30] MEDS: DOCUSATE SODIUM 100 MG CAPSULE 200 MG PO ×2 (08:33→17:02)
[2021-10-30] MEDS: CLOBETASOL PROPIONATE 0.05% CREAM 30 GM 1 APPLIC TOPICAL (08:34)
[2021-10-30] MEDS: ENOXAPARIN 40 MG/0.4 ML SYRINGE SUB-Q (08:34)
[2021-10-30] MEDS: GABAPENTIN 300 MG CAPSULE 600 MG PO ×3 (08:34→17:02)
[2021-10-30] MEDS: METOPROLOL TARTRATE 12.5 MG TABLET PO ×2 (08:35→20:19)
[2021-10-30] MEDS: SENNOSIDES 8.6 MG TABLET 17.2 MG PO ×2 (08:35→17:02)
--- NOTE | 2021-10-30 09:41 | PM.IMPN ---
Progress Note: A&P Assessment and Plan (1) Sepsis without septic shock: Code(s): A41.9 - Sepsis, unspecified organism Status: Acute Assessment and Plan: Now improved. (2) UTI (urinary tract infection): Qualifiers: Urinary tract infection type: catheter-associated UTI Indwelling urinary catheter type: indwelling urethral catheter Encounter type: initial encounter Qualified Code(s): T83.511A - Infection and inflammatory reaction due to indwelling urethral catheter, initial encounter; N39.0 - Urinary tract infection, site not specified Code(s): N39.0 - Urinary tract infection, site not specified Status: Acute Assessment and Plan: Continue IV antibiotics. (3) Fecal impaction in rectum: Code(s): K56.41 - Fecal impaction Status: Acute Assessment and Plan: Status post disimpaction in ER. (4) Chronic indwelling Saez catheter: Code(s): Z97.8 - Presence of other specified devices Status: Acute Subjective Date/time seen: 10/30/21 09:41 No complaints Exam Narrative: Weight 117.3 kg BMI 35.1 Const: Other: Obese, no acute distress, laying flat in bed HENMT: Other: Head is normocephalic atraumatic, mucous membranes are dry, limited evaluation oropharynx as patient cannot open his mouth much due to presence of cervical collar, fair dentition Eyes: Other: pupils are equal and reactive, mild conjunctival erythema left eye, eye is watering Neck: Other: Cervical collar in place Resp: Other: Clear to auscultation bilaterally, no increased work of breathing Cardio: Other: Regular rate, regular rhythm, 2+ bilateral radial pedal pulses GI: Other: Distended, nontender, hypoactive bowel sounds, soft : Other: Saez catheter in place with distortion of the urethral meatus due to history of repeated catheterization, 150-200 mL of dark turbid carmen urine present Back/Spine/Pelvis: Other: Cervical collar in place Skin: Other: Extensive tattoos extending up bilateral arms including posterior of the fingers up on to the chest, otherwise generalized pallor Neuro: Other: Alert and oriented, speech is clear, no facial asymmetry, decreased reflexes patellar bilaterally, intact sensation of upper extremities, upper extremity movement is grossly normal, 3/5 strength plantar flexion bilateral lower extremities Extrem: Other: 1+ pitting edema of lower extremities, Psych: Other: Flat affect, cooperative Objective Data Vital Signs Vital Signs: Vital Signs - 24 hr 10/29/21 12:00 10/29/21 16:00 10/29/21 20:00 Temperature 97.8 F 98.0 F 97.8 F Pulse Rate 73 77 84 Respiratory Rate 22 H 20 18 Blood Pressure 164/87 H 151/87 H 157/93 H Pulse Oximetry 97 98 98 10/29/21 20:28 10/29/21 23:28 10/30/21 03:54 Temperature 97.4 F L 97.8 F Pulse Rate 84 79 66 Respiratory Rate 16 18 Blood Pressure 135/88 146/91 H Pulse Oximetry 98 97 10/30/21 08:35 10/30/21 09:21 Temperature 97.4 F L Pulse Rate 61 64 Respiratory Rate 16 Blood Pressure 162/82 H Pulse Oximetry 97 Intake/Output Intake/Output: Intake & Output 10/27/21 10/28/21 10/29/21 10/30/21 23:59 23:59 23:59 23:59 Intake Total 2990 4230 2950 100 Output Total 4150 4200 2150 1000 Balance -1160 30 800 -900 Meds/Results Medications: Active Medications Generic Name Dose Route Start Last Admin Trade Name Freq PRN Reason Stop Dose Admin Acetaminophen 650 mg 10/26/21 06:23 10/26/21 16:25 Acetaminophen 325 Mg Tablet PO 650 mg Q4H PRN Administration Mild Pain (1-3) or Fever Artificial Tears 1 drop 10/26/21 06:52 Artificial Tears Ophth Soln 15 Ml Bottle EACH EYE QID PRN Dry Eye(s) Bisacodyl 10 mg 10/26/21 06:14 Bisacodyl 10 Mg Suppository RECTAL DAILY PRN Constipation Clobetasol Propionate 1 applic 10/26/21 09:00 10/30/21 08:34 Clobetasol Propionate 0.05% Cream 30 Gm TOPICAL 1 applic Q12HR [facility] Ad
[2021-10-30] MEDS: SODIUM CHLORIDE 0.9% IV 1,000 ML 125 ML IV CONT ×2 (14:20→22:31)
[2021-10-30] MEDS: cefTRIAXone 2 GM in SODIUM CHLORIDE 0.9% IV 100 ML 200 ML IVPB (21:08)
[2021-10-31 00:33] VITALS: BP 155/77; PULSE 74; RESP 20; TEMP 36.4; O2SAT 98
[2021-10-31] MEDS: CYCLOBENZAPRINE HCL 10 MG TABLET PO (05:28)
[2021-10-31] MEDS: SODIUM CHLORIDE 0.9% IV 1,000 ML 125 ML IV CONT (06:27)
[2021-10-31 06:40] VITALS: BP 166/82; PULSE 67; RESP 18; TEMP 36.2; O2SAT 95
[2021-10-31 08:00] VITALS: BP 166/83; PULSE 68; RESP 20; TEMP 36.8; O2SAT 96
[2021-10-31 08:14] VITALS: PULSE 63
[2021-10-31] MEDS: GABAPENTIN 300 MG CAPSULE 600 MG PO (08:14)
[2021-10-31] MEDS: SENNOSIDES 8.6 MG TABLET 17.2 MG PO (08:14)
[2021-10-31] MEDS: MELOXICAM 7.5 MG TABLET PO (08:14)
[2021-10-31] MEDS: METOPROLOL TARTRATE 12.5 MG TABLET PO (08:14)
[2021-10-31] MEDS: DOCUSATE SODIUM 100 MG CAPSULE 200 MG PO (08:14)
[2021-10-31] MEDS: CLOBETASOL PROPIONATE 0.05% CREAM 30 GM 1 APPLIC TOPICAL (08:15)
[2021-10-31] MEDS: ENOXAPARIN 40 MG/0.4 ML SYRINGE SUB-Q (08:15)
--- NOTE | 2021-10-31 09:54 | PM.DS ---
DS: Admitting Diagnosis Discharge Date October 31, 2021 Admitting Diagnosis UTI with sepsis DS: Discharge Diagnosis Discharge Diagnosis (1) Sepsis without septic shock: Code(s): A41.9 - Sepsis, unspecified organism Status: Acute Assessment and Plan: Now improved. (2) UTI (urinary tract infection): Qualifiers: Urinary tract infection type: catheter-associated UTI Indwelling urinary catheter type: indwelling urethral catheter Encounter type: initial encounter Qualified Code(s): T83.511A - Infection and inflammatory reaction due to indwelling urethral catheter, initial encounter; N39.0 - Urinary tract infection, site not specified Code(s): N39.0 - Urinary tract infection, site not specified Status: Acute Assessment and Plan: Continue IV antibiotics. (3) Fecal impaction in rectum: Code(s): K56.41 - Fecal impaction Status: Acute Assessment and Plan: Status post disimpaction in ER. (4) Chronic indwelling Saez catheter: Code(s): Z97.8 - Presence of other specified devices Status: Acute DS: Summary Hospital Course Hospital Course: Patient was admitted for septic shock and found to have bacteremia from a UTI. Patient did have positive blood cultures. He will be sent home on Bactrim orally x3 more days. Otherwise he is okay and doing fine now. Time Spent with Patient Time attestation: Total time spent providing and/or coordinating discharge services: Exam Narrative: Weight 117.3 kg BMI 35.1 Const: Other: Obese, no acute distress, laying flat in bed HENMT: Other: Head is normocephalic atraumatic, mucous membranes are dry, limited evaluation oropharynx as patient cannot open his mouth much due to presence of cervical collar, fair dentition Eyes: Other: pupils are equal and reactive, mild conjunctival erythema left eye, eye is watering Neck: Other: Cervical collar in place Resp: Other: Clear to auscultation bilaterally, no increased work of breathing Cardio: Other: Regular rate, regular rhythm, 2+ bilateral radial pedal pulses GI: Other: Distended, nontender, hypoactive bowel sounds, soft : Other: Saez catheter in place with distortion of the urethral meatus due to history of repeated catheterization, 150-200 mL of dark turbid carmen urine present Back/Spine/Pelvis: Other: Cervical collar in place Skin: Other: Extensive tattoos extending up bilateral arms including posterior of the fingers up on to the chest, otherwise generalized pallor Neuro: Other: Alert and oriented, speech is clear, no facial asymmetry, decreased reflexes patellar bilaterally, intact sensation of upper extremities, upper extremity movement is grossly normal, 3/5 strength plantar flexion bilateral lower extremities Extrem: Other: 1+ pitting edema of lower extremities, Psych: Other: Flat affect, cooperative Discharge Plan Discharge Attending physician on discharge: Erick Reilly Discharging Clinician: Erick Reilly Patient Disposition: SNF Activity: no preference Diet: as tolerated Patient Instructions: Enoxaparin (By injection) Stand Alone Forms: General Discharge Information Discharge Medications: New sulfamethoxazole-trimethoprim [Bactrim DS] 800-160 mg tablet 2 tablet PO Q12H 3 Days Qty: 12 0RF Continued magnesium citrate Solution 300 ml PO DAILY PRN (Reason: Constipation) Rx Instructions: give if has no results from enema bisacodyl 1 supp RECTAL DAILY PRN (Reason: Constipation) Rx Instructions: give if no results from MOM Milk of Magnesia 30 ml PO HS PRN (Reason: Constipation) Rx Instructions: if no BM for 3 days cyclobenzaprine 10 mg Tablet 10 mg PO Q8HR Qty: 90 0RF sennosides [Senokot] 8.6 mg Tablet 17.2 mg PO BID Qty: 30 0RF acetaminophen [Mapap (acetaminophen)] 325 mg Tablet 975 mg PO Q6H PRN (Reason: Pain) Qty: 90 0
[2021-10-31 11:25] LABS: EDCOVIDSCREEN Negative (Negative)
--- NOTE | 2021-10-31 11:44 | PCNFU ---
Nutrition Follow-Up Complete: Increased protein needs related to wounds as evidenced by Stage 2 bilateral upper coccyx deep tissue pressure ulcer. Goal: Meet estimated nutritional needs for wound healing. _ Goal being met. Drinking supplements and meal intake is good, except patient does not eat breakfast Pt current nutrition is heart healthy. Nutrition recommendation: Continue current diet order, heart healthy diet. Continue Ensure Compact BID and Tyrone bid. Last recorded weight is 117.3 kg. Bowel Motility: +1 BM 10/30/21 Labs Reviewed: 10/28/21: (last labs) Na 134, K+ 3.3, Creat 0.6 Meds Noted: Dulcolax, Lovenox, lopressor, miralx Skin: No changes to stage 2 DTI coccyx Additional Notes: Pt tells me he does not eat breakfast and never has. Says he is drinking his supplements. Monitor intake, weight, and labs and follow up in 5 days.
[2021-10-31 12:00] VITALS: BP 123/74; PULSE 73; RESP 18; TEMP 36.6; O2SAT 98
== END 2021-10-31 13:04 | DRG 698 ==
LOC: ANHED 18:59 → ANH2MED 10-26 01:00
PROVIDERS: Emergency Medicine; Admitting Provider Internal Medicine; Emergency Provider Nurse Practitioner Family; PCP Hospitalist; Visit Provider Chiropractor
DX: T83.511A Infection and inflammatory reaction due to indwelling urethral catheter, initial encounter (principal); A41.9 Sepsis, unspecified organism; G83.4 Cauda equina syndrome; N13.30 Unspecified hydronephrosis; N39.0 Urinary tract infection, site not specified; R31.9 Hematuria, unspecified; R33.9 Retention of urine, unspecified; Z20.822 Contact with and (suspected) exposure to COVID-19; K56.41 Fecal impaction; I10 Essential (primary) hypertension; E11.9 Type 2 diabetes mellitus without complications; Z79.899 Other long term (current) drug therapy; Z86.16 Personal history of COVID-19; Z98.1 Arthrodesis status; Z98.2 Presence of cerebrospinal fluid drainage device
CPT/HCPCS: 36415; 36569; 71045; 74176; 76775; 80048; 80053; 81001; 83605; 83690; 85025; 85027; 86140; 87040; 87077; 87086; 87147; 87181; 87186; 87426; 87804; 96361; 96374; 97110; 97161; 97167; 97530; 97535; 99285; A9270; C1751; C9803; J0696; J1650; J1885; J7030; J7040; U0003; U0005

== ENCOUNTER 2022-04-06 14:02 | Emergency (ER) | payer MEDICARE, SELFPAY ==
[2022-04-06] VITALS (27 sets, daily range): BP systolic 115–156; BP diastolic 59–101; PULSE 89–112; RESP 17–28; TEMP 37.2; O2SAT 95–100
--- NOTE | ~2022-04-06 | XR_ITS ---
Clinical Indication: Weakness AP and lateral views of the chest: Comparison: 10/25/2021 Findings: MICROBIOLOGY TEACHER shunt present. The lungs are clear, without evidence of focal consolidation or pleural e ffusion. Cardiomediastinal silhouette is within normal limits. Stable cervicothoracic spinal fixatio n hardware. Impression: Clear lungs. Reviewed, dictated and finalized at location . LEY WORKER Impression: Clear lungs.
--- NOTE | 2022-04-06 14:30 | ECG_ITS ---
Measurements Intervals Dike Rate: 99 P: 30 WA: 169 QRS: 27 QRSD: 106 T: 20 QT: 344 QTc: 443 Interpretive Statements SINUS RHYTHM NORMAL ECG NO PREVIOUS ECG AVAILABLE FOR COMPARISON Electronically Signed On 04-07-2022 14:33:30 PRE K SPECIAL EDUCATION TEACHER by Erick Morataya M.D.
[2022-04-06 19:17] LABS: Basophils Percent Auto 0.4 % (0.2-1.2); Eosinophils Absolute Auto 0.2 K/mm3 (0-0.3); Eosinophils Percent Auto 1.4 % (0-4.4); Hematocrit 35.6 % (42.0-52.0); Hemoglobin 11.8 g/dL (14.0-18.0); Immature Granulocyte Absolute 0.04 K/mm3 (0.00-0.031); Immature Granulocyte Percent A 0.4 % (0-0.5); Immature Platelet Fraction Pct 3.1 % (0.9-11.2); Lymphocytes Percent Auto 13.2 % (18.3-44.2); Mean Corpuscular HGB Conc 33.1 g/dl (32-36); Mean Corpuscular Hemoglobin 26.9 pg (26-34); Mean Corpuscular Volume 81.3 fl (80-100); Monocytes Absolute Auto 0.9 K/mm3 (0.1-0.6); Monocytes Percent Auto 8.9 % (2.6-8.5); Neutrophils Percent Auto 75.7 % (45.5-73.1); Platelet Count Result 177 k/mm3 (150-375); Red Blood Count 4.38 M/mm3 (4.6-6.20); Red Cell Distribution Width 13.2 % (11.5-14.5); White Blood Count 10.6 K/mm3 (4.5-10.0)
[2022-04-06 19:28] LABS: Alanine Aminotransferase 26 U/L (6-50); Alkaline Phosphatase 116 U/L (38-126); Anion Gap 7 mmol/L (8-16); Aspartate Amino Transferase 30 U/L (17-59); Bilirubin,Total 0.9 mg/dL (0.2-1.3); Blood Urea Nitrogen 14 mg/dL (9-20); Calcium 8.7 mg/dL (8.4-10.2); Carbon Dioxide 29 mmol/L (22-30); Chloride 95 mmol/L (98-107); Estimated Glomerular Filt Rate > 60; Glucose 154 mg/dL (65-110); Potassium 4.3 mmol/L (3.4-5.0); Sodium 131 mmol/L (137-145)
[2022-04-06 19:44] LABS: Bacteria Urine 3+ /hpf; Mucus Urine Heavy /lpf; RBC Urine >75 /hpf (0-2); WBC Urine >75 /hpf
[2022-04-06 19:48] LABS: Appearance Urine Cloudy (Clear); Bilirubin Urine 1+ (Negative); Blood Urine 3+ (Negative); Color Urine Yellow (Yellow); Glucose Urine UA Trace mg/dL (Negative); Ketones Urine 1+ mg/dL (Negative); Leukocyte Esterase Ur 3+ LEU/UL (Negative); Nitrate Urine Positive (Negative); Protein Urine 3+ mg/dL (Negative); Specific Grav Ur 1.025 (1.001-1.035); pH Urine 5.5 (5.0-9.0)
[2022-04-06 19:49] LABS: Add Urine Microscopic? YES
--- NOTE | 2022-04-06 20:38 | PC.NURSE ---
attempted to call marbella marx regarding patient return. unable to contact RN at this time. will attempt again prior to patient leaving.
[2022-04-06 20:43] LABS: Influenza A QL RT-PCR Negative (Negative); Influenza B QL RT-PCR Negative (Negative); RSV RNA, RT-PCR Negative (Negative); SARS-CoV-2 RNA PCR Negative
--- NOTE | 2022-04-06 20:57 | PC.NURSE ---
Report called to Wilton BATES at [facility] regarding patient return. no questions at time of report
--- NOTE | 2022-04-06 21:45 | ED.WEAKNESS ---
HPI - Weakness General Chief complaint: Weakness Stated complaint: weakness since sunday Time Seen by Provider: 04/06/22 19:08 History of Present Illness HPI Narrative: Patient with history of congenital hydrocephalus with CENTRAL SERVICE TECHNICIAN shunt, frequent UTIs, presents here with feeling generalized weakness and unwellness, states it feels like his UTI. He states every time he has a UTI he can kind of feel some tingling in his legs, and he feels this way now. No fevers or chills, nausea or vomiting. He is at a shelter and they stated that they were worried he was septic so sent him here. He denies any other symptoms, no abdominal or back pain, no chest pain, no difficulty breathing. Related Data Home Medications Medication Instructions Recorded Confirmed Milk of Magnesia 30 ml PO HS PRN Constipation 10/26/21 10/26/21 bisacodyl 1 supp RECTAL DAILY PRN 10/26/21 10/26/21 Constipation magnesium citrate 300 ml PO DAILY PRN Constipation 10/26/21 10/26/21 Allergies Allergy/AdvReac Type Severity Reaction Status Date / Time No Known Allergies Allergy Verified 09/02/21 17:54 Review of Systems Review of Systems: CONST: No fever. HEENT: No sore throat C/V: No chest pain RESP: No cough GI: No abdominal pain or nausea or vomiting : Dysuria M/S: No back pain SKIN: No rash. NEURO: [No headache or focal numbness or weakness] PSYCH: [No depression] REPLACED BY [facility] Past Medical History Medical History Cauda equina compression (~1997) Cervical spinal stenosis Chronic indwelling Saez catheter Congenital hydrocephalus Constipation COVID (~10/2021) Diabetes mellitus DVT (deep venous thrombosis) (~1983) Eczema Essential hypertension Neurogenic bladder Sinus tachycardia Surgical History Surgical History History of appendectomy History of fusion of cervical spine Anterior C3-C4 in 1993, 08/24/2021 spinal cord injury MRI demonstrating moderate to severe degenerative changes at C4-C5 with severe spinal canal stenosis and mass effect on spinal cord he underwent a C2 through T1 2 posterior spinal fusion with a C2 through C7 decompression by Dr. Nieves 08/26/2021 Status post lumbar spine surgery for decompression of spinal cord (~1998) CENTRAL SERVICE TECHNICIAN (ventriculoperitoneal) shunt status With last revision in 1999 Family History Family History Mother , Age 71 Heart disease Hypertension Diabetes mellitus Father , Age 57 Heart disease Acute myocardial infarction Social History Social History Social History: Code status: DNI Surrogate decision maker: Narcisa (daughter) Smoking status: Never smoker Alcohol intake: former Alcohol use details: He quit drinking when he was in his 20s. Substance use: never Additional living arrangements comments: He is and lives alone prior to his recent spinal cord injury. He was independent activities of daily living. He has 1 daughter and 2 grand children. 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 He is now on disability. Spiritual care concerns: No Exam Narrative: EXAMINATION OF ORGAN SYSTEMS/BODY AREAS: Constitutional: Vital signs per nursing GENERAL:[No acute distress, non-toxic appearing.] HEAD: Normal with no signs of head trauma. Shunt reservoir depressible EYES: EOMI, conjunctiva normal ENT: Hearing grossly intact LUNGS: Nonlabored breathing. HEART: [Regular rate and rhythm] ABD: [Soft], [nontender to palpation] BACK: No CVAT EXT: Able to move both lower extremities SKIN: [No rashes or lesions.] NEURO: [Alert and oriented x 3.] PSYCH: Normal affect Course Vital Signs Vital signs: Vital Signs Temperature 98.9 F 04/06/22 14:29 Pulse Rate 98 04/06/22 14:29 R
== END 2022-04-06 22:33 ==
PROVIDERS: Emergency Medicine; Emergency Provider Emergency Medicine; PCP Hospitalist
DX: N39.0 Urinary tract infection, site not specified (principal); Z20.822 Contact with and (suspected) exposure to COVID-19; E11.9 Type 2 diabetes mellitus without complications; I10 Essential (primary) hypertension; Q03.9 Congenital hydrocephalus, unspecified; N31.9 Neuromuscular dysfunction of bladder, unspecified; Z98.1 Arthrodesis status; Z98.2 Presence of cerebrospinal fluid drainage device; Z86.718 Personal history of other venous thrombosis and embolism; Z86.16 Personal history of COVID-19
CPT/HCPCS: 36415; 71046; 80053; 81001; 85025; 85055; 87077; 87086; 87186; 87637; 93005; 96365; 99284; J0696

== ENCOUNTER 2022-09-28 02:09 | Day surgery (SDC) | payer MEDICARE, SELFPAY ==
--- NOTE | 2022-09-22 10:27 | PC.NURSE ---
Report to the Outpatient Waiting Room, entrance under the green pavilion located off [facility], at time 0830_ on date 09/28/22_. Planned Procedure Time: _1030. Time changes happen often and if your time is changed the preop area will call you the afternoon before. - You and your visitor will be asked to self-screen and do not enter if you have any COVID symptoms. - A mask is optional within the hospital at this time. Patients may have clear liquids (water, carbonated beverages, clear teas, apple juice) until 3 hours prior to surgery with a maximum of 20 ounces. - No food from midnight until time of surgery - Infants may have breast milk until 4 hours before surgery, infant formula 6 hours prior to surgery. - Children will be allowed to drink immediately following surgery. If applicable, please bring a bottle or sippy cup to assist with drinking. Juice, water, soda, and popsicles are readily available. For infants on formula, please bring formula the day of surgery. Pacifiers are allowed. Take the following medications with a SIP of water the morning of surgery: DO NOT STOP ANY OF YOUR OTHER PRESCRIPTION MEDICATIONS PRIOR TO SURGERY ?EXCEPT THE FOLLOWING Medications to discontinue per physician Date to take last dose Please no make-up, nail guamanian, hairspray, perfume, deodorant, or body powder the day of surgery. No jewelry (including any body piercings) or valuables the day of surgery, leave them at home. Please take a shower or bath the night before, or the morning of, surgery with an antibacterial soap. Wear comfortable, loose fitting clothing. Children are encouraged to wear pajamas. - Jewelry must be removed prior to entering the operating room. Rings and piercings that are not removed may be cut off. - The hospital will not accept responsibility for valuables. - Please leave all valuables, including medications, at home the day of surgery. If you are going home after surgery, a licensed log truck driver must drive you home. - NO public transportation without another adult if you receive anesthesia. - We recommend that an adult stay with you for 24 hours following discharge. - We also recommend that you do not drive, make important decision, drink alcoholic beverages, or take any drugs that were not prescribed by your health care provider for at least 24 hours after your discharge time. For Pediatric surgeries, we recommend two adults accompany the child home. Follow any additional instructions given to you from your surgeon. If you or anyone in your household have experienced Covid symptoms in the past week, please notify your surgeon or the nurse liaison at the phone number below for possible testing. Telephone instructions given to _romana_and asked if any additional questions and then verbalized understanding. Patient advised to call surgeon office or pre surgery nurse liaison [phone] if any additional questions.
--- NOTE | 2022-09-22 12:47 | SUR.PREOP ---
IF THE SURGERY TIME IS ADJUSTED YOU WILL RECEIVE A PHONE CALL 09/27/22 IN THE AFTERNOON Report to the Outpatient Waiting Room, entrance under the green pavilion located off [facility], at time 0830_ on date _09/28/22. Planned Procedure Time: _1030_. Time changes happen often and if your time is changed the preop area will call you the afternoon before. - You and your visitor will be asked to self-screen and do not enter if you have any COVID symptoms. - A mask is optional within the hospital at this time. Patients may have clear liquids (water, carbonated beverages, clear teas, apple juice) until 3 hours prior to surgery with a maximum of 20 ounces. - No food from midnight until time of surgery - Infants may have breast milk until 4 hours before surgery, infant formula 6 hours prior to surgery. - Children will be allowed to drink immediately following surgery. If applicable, please bring a bottle or sippy cup to assist with drinking. Juice, water, soda, and popsicles are readily available. For infants on formula, please bring formula the day of surgery. Pacifiers are allowed. Take the following medications with a SIP of water the morning of surgery: __NONE DO NOT STOP ANY OF YOUR OTHER PRESCRIPTION MEDICATIONS PRIOR TO SURGERY ?EXCEPT THE FOLLOWING Medications to discontinue per physician VITAMINS AND SUPPLIMENTS Date to take last dose__09/25/22 Please no make-up, nail irish, hairspray, perfume, deodorant, or body powder the day of surgery. No jewelry (including any body piercings) or valuables the day of surgery, leave them at home. Please take a shower or bath the night before, or the morning of, surgery with an antibacterial soap. Wear comfortable, loose fitting clothing. Children are encouraged to wear pajamas. - Jewelry must be removed prior to entering the operating room. Rings and piercings that are not removed may be cut off. - The hospital will not accept responsibility for valuables. - Please leave all valuables, including medications, at home the day of surgery. If you are going home after surgery, a licensed driver license agent must drive you home. - NO public transportation without another adult if you receive anesthesia. - We recommend that an adult stay with you for 24 hours following discharge. - We also recommend that you do not drive, make important decision, drink alcoholic beverages, or take any drugs that were not prescribed by your health care provider for at least 24 hours after your discharge time. For Pediatric surgeries, we recommend two adults accompany the child home. Follow any additional instructions given to you from your surgeon. If you or anyone in your household have experienced Covid symptoms in the past week, please notify your surgeon or the nurse liaison at the phone number below for possible testing. Telephone instructions given to _PATIENT/ CARE FACILITY and asked if any additional questions and then verbalized understanding. Patient advised to call surgeon office or pre surgery nurse liaison [phone] if any additional questions.
--- NOTE | 2022-09-26 06:32 | PM.HPGS ---
History of Present Illness History of Present Illness Consent: Risks, benefits, and alternatives have been discussed and questions answered. Patient agrees to proceed with procedure. Chief complaint: antonic bladder Narrative: Mark Kenny is a 52 year old male with PMHx of spinal stenosis with prior cervical fusion, S/P fall over a month ago with BUE weakness following, subsequently placed in a SNF following, long hx of neurogenic bladder prior to the fall, self catheterized for years, now presenting from a local rehab facility with indwelling Saez catheter. He states he cannot walk to the bathroom without assistance yet, therefore he has stopped self catheterizing temporarily until he can walk himself to the bathroom again. After managing with a chronic indwelling catheter for several months he has elected to proceed with placement of a suprapubic catheter. He is aware the risk of this including, but not limited to, bowel injury, ongoing recurrent urinary tract infections and hematuria. Review of Systems Cardiovascular: Cardiovascular: Denies chest pain, Denies lightheadedness, Denies palpitations and Denies dyspnea Respiratory: Respiratory: Denies dyspnea Gastrointestinal: Gastrointestinal: Denies diarrhea, Denies nausea and Denies vomiting Genitourinary: Genitourinary: Denies hematuria, Denies dysuria and Reports other ( chronic urinary retention) Endocrine: Endocrine: Denies palpitations PMFSH Past Medical History Medical History Cauda equina compression (~1997) Cervical spinal stenosis Chronic indwelling Saez catheter Congenital hydrocephalus Constipation COVID (~10/2021) Diabetes mellitus DVT (deep venous thrombosis) (~1983) Eczema Essential hypertension Neurogenic bladder Sinus tachycardia Surgical History Surgical History History of appendectomy History of fusion of cervical spine Anterior C3-C4 in 1993, 08/24/2021 spinal cord injury MRI demonstrating moderate to severe degenerative changes at C4-C5 with severe spinal canal stenosis and mass effect on spinal cord he underwent a C2 through T1 2 posterior spinal fusion with a C2 through C7 decompression by Dr. Nieves 08/26/2021 Status post lumbar spine surgery for decompression of spinal cord (~1998) EMBEDDED NURSE (ventriculoperitoneal) shunt status With last revision in 1999 Family History Family History Mother , Age 71 Heart disease Hypertension Diabetes mellitus Father , Age 57 Heart disease Acute myocardial infarction Social History Social History Social History: Code status: DNI Surrogate decision maker: Narcisa (daughter) Smoking status: Never smoker Alcohol intake: never Alcohol use details: He quit drinking when he was in his 20s. 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 He is now on disability. Spiritual care concerns: No Meds Home Medications and Allergies Home Medications Medication Instructions Recorded Confirmed Type acetaminophen 325 mg tablet (Mapap 650 mg PO Q6H PRN Mild Pain (1-3) 08/15/22 09/22/22 Rx (acetaminophen)) Or Fever #30 tabs bisacodyl 10 mg rectal suppository 10 mg RECTAL QAM #30 ea 08/15/22 09/22/22 Rx insulin lispro 100 unit/mL 2 - 5 unit subcut TID.ARISSI #20 mL 08/15/22 09/22/22 Rx subcutaneous solution (Humalog U-100 Insulin) mupirocin 2 % topical ointment 1 applic topical Q12HR #20 grams 08/15/22 09/22/22 Rx polyethylene glycol 3350 17 gram 17 g PO TID #100 ea 08/15/22 09/22/22 Rx oral powder packet (Miralax) sennosides 8.6
--- NOTE | 2022-09-28 06:40 | WPDHPUPDATE1 ---
History and Physical Update Update Date/Time: 09/28/22 06:40 History and Physical has been reviewed, including an updated exam of the patient. There are NO changes in the patient's condition. Risks, benefits, and alternatives have been discussed and questions answered. Patient agrees to proceed with procedure.
[2022-09-28 08:29] VITALS: BMI 37.5
[2022-09-28 09:00] VITALS: BP 148/74; PULSE 64; RESP 16; TEMP 37.2; O2SAT 99
[2022-09-28 09:25] LABS: Glucose Point of Care 133 mg/dl (65-105)
--- NOTE | 2022-09-28 09:36 | WPDANESEPPF ---
Anes - Initial Pre Proc Eval Procedure: Operation Date: 09/28/22 10:30 Proposed Procedures p Cystoscopy,Insertion Suprapubic Catheter - Armaan Guadalupe MD Date/Time: 09/28/22 09:36 Surgeon: Armaan Guadalupe MD Pre Op Diagnosis: antonic bladder Patient Data Age: 52 Gender: M Height: 1.83 m Weight: 125.4 kg Last Vital Signs Temp 37.2 C 09/28/22 09:00 Pulse 64 09/28/22 09:00 Resp 16 09/28/22 09:00 BP 148/74 H 09/28/22 09:00 Pulse Ox 99 09/28/22 09:00 O2 Del Method Room Air 09/28/22 09:00 Allergies Allergy/AdvReac Type Severity Reaction Status Date / Time No Known Allergies Allergy Verified 09/28/22 08:48 Home Medications Medication Instructions Recorded Confirmed Type acetaminophen 325 mg tablet (Mapap 650 mg PO Q6H PRN Mild Pain (1-3) 08/15/22 09/28/22 Rx (acetaminophen)) Or Fever #30 tabs bisacodyl 10 mg rectal suppository 10 mg RECTAL QAM #30 ea 08/15/22 09/28/22 Rx insulin lispro 100 unit/mL 2 - 5 unit subcut TID.ARISSI #20 mL 08/15/22 09/28/22 Rx subcutaneous solution (Humalog U-100 Insulin) mupirocin 2 % topical ointment 1 applic topical Q12HR #20 grams 08/15/22 09/28/22 Rx polyethylene glycol 3350 17 gram 17 g PO TID #100 ea 08/15/22 09/28/22 Rx oral powder packet (Miralax) sennosides 8.6 mg-docusate sodium 2 tab PO BID #60 tabs 08/15/22 09/28/22 Rx 50 mg tablet (Senokot-S) trazodone 50 mg tablet 50 mg PO HS #30 tabs 08/15/22 09/28/22 Rx Gentamycin Sulfate topical DAILY 09/22/22 History ascorbic acid (vitamin C) 500 mg 500 mg PO DAILY 09/22/22 09/28/22 History capsule bismuth subsalicylate 525 mg/15 mL 525 mg PO QID PRN Indigestion 09/22/22 09/22/22 History oral suspension collagenase clostridium histo. 250 1 applic topical DAILY 09/22/22 09/28/22 History unit/gram topical ointment magnesium citrate 4 gram oral 250 mg PO DAILY PRN Constipation 09/22/22 09/28/22 History packet magnesium hydroxide 400 mg/5 mL 400 mg PO DAILY PRN Constipation 09/22/22 09/28/22 History oral suspension (Milk of Magnesia) metformin 1,000 mg tablet 1,000 mg PO BID 09/22/22 09/28/22 History ondansetron 4 mg disintegrating 4 mg PO Q6H PRN Nausea 09/22/22 09/22/22 History tablet oxymetazoline 0.05 % nasal mist 2 spray intranasal Q12H PRN SINUS 09/22/22 09/28/22 History (Afrin (oxymetazoline)) CONGESTION simethicone 125 mg chewable tablet 125 mg PO BID PRN GAS 09/22/22 09/28/22 History Laboratory Tests 09/28/22 09:21 POC Capillary Glucose 133 H mg/dl (65-105) Patient hx anesthesia problems: none Family hx anesthesia problems: none Results Review: All pre-operative results and documents have been reviewed as part of the pre-operative evaluation. [facility] Past Medical History Medical History Cauda equina compression (~1997) Cervical spinal stenosis Chronic indwelling Saez catheter Congenital hydrocephalus Constipation COVID (~10/2021) Diabetes mellitus DVT (deep venous thrombosis) (~1983) Eczema Essential hypertension Neurogenic bladder Sinus tachycardia Surgical History Surgical History History of appendectomy History of fusion of cervical spine Anterior C3-C4 in 1993, 08/24/2021 spinal cord injury MRI demonstrating moderate to severe degenerative changes at C4-C5 with severe spinal canal stenosis and mass effect on spinal cord he underwent a C2 through T1 2 posterior spinal fusion with a C2 through C7 decompression by Dr. Nieves 08/26/2021 Status post lumbar spine surgery for decompression of spinal cord (~1998) [employer] (ventriculoperitoneal) shunt status With last revision in 1999 Family History Family History Mother , Age 71 Heart disease Hypertension Diabetes mellitus Father , Age 57 Heart disease Acute myocardial infarct
[2022-09-28] MEDS: LACTATED RINGERS 1,000 ML 30 ML IV CONT (09:50)
[2022-09-28] MEDS: ceFAZolin 3 GM/D5W 100 ML 100 ML IVPB (09:54)
[2022-09-28] MEDS: LIDOCAINE HCL 2% GEL UROJET 10 ML PKG MUCOUS MEM (10:21)
[2022-09-28] MEDS: BUPivacaine HCL 0.25% PF 30 ML VIAL INFILTRATE (10:22)
--- NOTE | 2022-09-28 10:36 | P.OP_ITS ---
Procedure Note - Detailed Date of Procedure 09/28/22 Pre-op Diagnosis Atonic bladder Post-op Diagnosis Same Procedure Performed Cystoscopy, placement of a suprapubic catheter Surgeon Armaan Guadalupe MD Anesthesia General Description of Procedure Patient is brought to the operative suite where he has prepped and draped in routine sterile fashion while in a dorsal lithotomy position. Cystoscopy is undertaken with a 21 F rigid cystoscope. He has no urethral strictures with moderate lateral lobe hyperplasia of the prostate. There is notable ventral erosion of the penile urethra, essentially to the perineum. Bladder mucosa is normal with only minimal hyperemia in the posterior wall consistent with ca theter cystitis. There is no intravesical foreign body or neoplasm. I filled his bladder with saline and placed a spinal needle through the dome of the bladder 1035 in glidewire was advanced through that and grasped with the cystoscope. I dilated the suprapubic tract with Amplatz dilators to from 8 F to 22 F. I then placed an 18F Councill tip catheter through the dome. The suprapubic catheter secured with a 3 O nylon. Scopes wires removed. Blood loss was approximately 5 cc. Drains Yes Packing No Pathology None sent Complications No immediate complications
[2022-09-28 10:45] VITALS: BP 109/71; PULSE 74; RESP 12; TEMP 36.4; O2SAT 97
[2022-09-28 10:49] LABS: Glucose Point of Care 160 mg/dl (65-105)
[2022-09-28 11:00] VITALS: BP 146/86; PULSE 61; RESP 16; O2SAT 97
[2022-09-28 11:15] VITALS: BP 149/82; PULSE 66; RESP 16; O2SAT 97
[2022-09-28 11:25] VITALS: BP 149/84; PULSE 62; RESP 16
[2022-09-28 11:55] VITALS: BP 142/79; PULSE 59; RESP 16
--- NOTE | 2022-09-28 12:16 | SUR.PHASEII ---
pt meets discharge criteria and is waiting for his ride which is EMT service. This nurse called and requested a ride when pt arrived to out pt. They said ETA is 1330. Instructed to come to entrance one and call outPT when arrives.
--- NOTE | 2022-09-28 13:28 | SUR.PHASEII ---
at 1300 pt denies any complaints and is still waiting on his ride. at 1329 EMT service called and said they are here to pick pt up.
== END 2022-09-28 13:31 | disposition home or self-care (01) ==
PROVIDERS: PCP Hospitalist; Visit Provider Urology
PROC: 0T9B30Z Drainage of Bladder with Drainage Device, Percutaneous Approach (ICD-10-PCS; CPT 51102; principal; 2022-09-28 10:30)
DX: N31.2 Flaccid neuropathic bladder, not elsewhere classified (principal); R33.9 Retention of urine, unspecified; N40.0 Benign prostatic hyperplasia without lower urinary tract symptoms; I10 Essential (primary) hypertension; M48.00 Spinal stenosis, site unspecified; Z98.1 Arthrodesis status; Q03.9 Congenital hydrocephalus, unspecified; E11.9 Type 2 diabetes mellitus without complications; Z86.718 Personal history of other venous thrombosis and embolism; Z98.2 Presence of cerebrospinal fluid drainage device; Z79.4 Long term (current) use of insulin; Z79.84 Long term (current) use of oral hypoglycemic drugs; E66.9 Obesity, unspecified; Z68.37 Body mass index [BMI] 37.0-37.9, adult
CPT/HCPCS: 51102; 82948; C1726; C1769; J0690; J1100; J2405; J2704; J3010; J7120